=== PATIENT | male | born 1945 | race Caucasian/White ===

== ENCOUNTER 2021-08-12 09:43 | Observation (INO) ==
[2021-08-12] MEDS ORDERED: HEPARIN (PORCINE) 1000 UNIT/ML 10 ML (CATH LAB USE ONLY) ONE ×2 (11:56→14:52)
[2021-08-12] MEDS ORDERED: NITROGLYCERIN/D5W 100MCG/ML 20ML SYR ONE (11:57)
[2021-08-12] MEDS ORDERED: fentaNYL citrate 100 MCG/2 ML VIAL ONE ×2 (11:57→14:16)
[2021-08-12] MEDS ORDERED: niCARdipine HCL INJ 2.5 MG/ML 10 ML AMP ONE (11:57)
[2021-08-12] MEDS ORDERED: MIDAZOLAM HCL 5 MG/ML 1 ML VIAL ONE ×2 (11:59→14:28)
--- NOTE | 2021-08-12 13:39 | History & Physical Bridge Note ---
Date of Service August 12, 2021 History & Physical Bridge Note I have examined the patient, reviewed the History & Physical and in the interval since the performance of the History & Physical I have noted the following changes of clinical significance: no changes noted
--- NOTE | 2021-08-12 13:39 | Pre Anesthesia Assessment ---
Date of Service August 12, 2021 Pre Sedation Assessment Vital Signs Temp Pulse Resp BP Pulse Ox 08/12/21 09:55 98.2 F 60 20 143/87 H 97 Cardiovascular RRR, no murmur, no edema Respiratory normal respiratory effort, lungs clear to auscultation Pre-Sedation Airway Assessment Smoking Status: Never smoker Hx Sleep Apnea: Yes Hx Difficult Intubation: No Short, Thick Neck: No Thyromental Distance: > or= 3.5 Finger Breadths Oral Cavity: + WNL Mallampati Class: II ASA: ASA3 NPO Status Date of Last Intake of Fluids: 08/11/21 Date of Last Intake of Solid Food: 08/11/21 Procedure Planning Contraindications for Sedation: none Current Medications Reviewed: Yes Notes The planned sedation has been discussed with the patient. Informed Consent was obtained. I have identified the patient, determined the appropriateness of sedation and have assessed the patient immediately prior to the procedure. All medicine(s) and interventions are by my order.
[2021-08-12] MEDS ORDERED: diphenhydrAMINE 50 MG/ML VIAL ONE (15:04)
[2021-08-12] MEDS ORDERED: LIDOCAINE 1%/EPINEPHRINE 1:100,000 50 ML VIAL ONE (15:37)
[2021-08-12] MEDS ORDERED: ONDANSETRON INJ 2 MG/ML 2 ML VIAL IV PRN (16:16)
--- NOTE | 2021-08-12 16:16 | Post Anesthesia Assessment ---
Date of Service August 12, 2021 Post Sedation Assessment Vital Signs Temp Pulse Resp BP Pulse Ox 08/12/21 15:55 63 20 145/70 H 94 08/12/21 09:55 98.2 F 60 20 143/87 H 97 Recovery Score Activity: Moves 4 extremities Respiration: Deep Breath/Cough Circulation: +/-20% PreAnes Value Consciousness: Fully Awake Oxygen Saturation: > 92% On Room Air Post Anesthesia Score: 10 Discharge Sedation Level of Care: Fast Track Phase II Post Sedation Plan On clinical assessment, the patient appears to have tolerated the sedation without complications. Patient is recovering as anticipated. Patient will continue to be monitored by nursing and may be discharged when sedation discharge criteria are met per below protocol. Upon Completions of procedure up to 15 minutes continue every 5 minute vital signs and the P.A.R. score; then discharge to a Phase I or Fast Track to Phase II per the following guidelines: * Discharge Patient to appropriate Phase II area if PAR is 8 or greater or retur n to pre- procedure baseline. The post - procedure orders will be as directed. * If PAR score is less than 8 or not return to pre-procedure baseline then patient will follow Phase I monitoring till PAR is reached for Phase II. The Phase I may be done in procedure room or may call to secure a Phase I area. * If naloxone or flumazenil are used for reversal, hold in Phase I for continued monitoring from when last reversal dose was given for a minimum of 60 minutes or longer pending the nurse and/or physician discretion of patient condition before discharge to Phase II. Please call the Sedation Physician to re-evaluate and complete post-note for discharge to Phase II area. Do NOT discharge from procedure sedation or Phase 1 until post- sedation evaluation note is complete by procedure /sedation MD Sedation Discharge Instructions to be given to the patient at discharge to home.
[2021-08-12] MEDS ORDERED: PHARMACY GLYCEMIC MGMT CONSULT PRN (16:26)
[2021-08-12] MEDS ORDERED: GLUCAGON FOR INJ 1 MG VIAL SQ PRN (16:26)
[2021-08-12] MEDS ORDERED: GLUCOSE 40% GEL 15 GM TUBE PO PRN (16:26)
[2021-08-12] MEDS ORDERED: GLUCOSE 10 TABS/TUBE PO PRN (16:26)
[2021-08-12] MEDS ORDERED: CARBOHYDRATES FOR HYPOGLYCEMIA PO PRN (16:26)
[2021-08-12] MEDS ORDERED: DEXTROSE 50% 50 ML SYRINGE IV PRN (16:26)
[2021-08-12] MEDS ORDERED: INSULIN ASPART PER UNIT SC SCH (16:30)
--- NOTE | 2021-08-12 16:58 | Pharmacy Report ---
Pharmacy Glycemic Short Note 2 - Date of Service August 12, 2021 - Glycemic Short OUTPATIENT ANTIDIABETIC REGIMEN: * Novolog 20 units SC BID * Semaglutide * Glimepiride * HbA1c 6.8% on 06/03/21 ASSESSMENT: * 76 yo M with T2DM admitted 08/12 for cardiac cath * Will initiate weight-based moderate stress Novolog * Lantus dependent on HS BSG PLAN FOR INPATIENT GLYCEMIC CONTROL: * Hold outpatient oral diabetes medications * Basal insulin * Lantus 0-20 units SQ x1, depending on HS BSG * Bolus insulin * NovoLog per scale ACHS or Q6hrs while NPO * Goal Range: 110-140 mg/dL * Correction Factor: 20 mg/dL/unit * Nutritional / Prandial insulin per carb ratio of 1 unit per 6 grams CHO consumed
[2021-08-12 17:02] LABS: Basophils # (auto) 0.03 K/uL (0-0.2); Basophils % (auto) 0.4 %; Eosinophils # (auto) 0.19 K/uL (0-0.5); Eosinophils % (auto) 2.5 %; Hematocrit (blood only) 34.4 % (42-52); Hemoglobin 11.7 g/dL (14.0-18.0); Immature Granulocytes # (auto) 0.01 K/uL (0.00-0.02); Immature Granulocytes % (auto) 0.1 %; Lymphocytes # (auto) 1.67 K/uL (1.2-3.4); Lymphocytes % (auto) 21.8 %; Mean Corpuscular Hemoglobin 27.6 pg (25-34); Mean Corpuscular Volume 81.1 fL (80-100); Mean Platelet Volume 9.5 fL (7.4-10.4); Monocytes # (auto) 0.65 K/uL (0.11-0.59); Monocytes % (auto) 8.5 %; Neutrophils # (auto) 5.12 K/uL (1.4-6.5); Neutrophils % (auto) 66.7 %; Platelet Count 281 K/uL (130-400); RDW Coefficient of Variation 15.2 % (11.5-14.5); RDW Standard Deviation 44.6 fL (36.4-46.3); Red Blood Count 4.24 M/uL (4.7-6.1); White Blood Count 7.67 K/uL (4.8-10.8)
--- NOTE | 2021-08-12 17:05 | Endovascular Procedure Note ---
[facility] Endovascular Procedure Rpt Pre & Post Diagnosis Peripheral arterial disease I identified the patient and participated in the time-out.: Yes Procedure Operation Date: 08/12/21 11:00 Actual Procedures s Ultrasound Vascular Access - Juan Pablo Quigley MD s SC Select Cath ALEP 3rd Order - Juan Pablo Quigley MD s Placement Art Occlusive Device - Juan Pablo Quigley MD p Angio Extremity Bilateral - Juan Pablo Quigley MD Surgeon Trever Quigley MD Ensemble Member Leila Carrasco Estimated Blood Loss 20 Findings See Below Abdominal aorta--no significant aneurysmal or stenotic disease Right lower extremity-- -Common iliac, external iliac, internal iliac widely patent -WIND UP WORKER, profunda widely patent -SFA calcified, diffuse mild to moderate disease up to 40% in distal segment -Popliteal mild diffuse disease -JAZZ 100% proximal occlusion, reconstitutes in the distal segment via collaterals, 80% stenosis prior to DPA TPT 60 to 70% stenosis prior to bifurcation -SQL DEVELOPER DBA 100% occluded proximally, partially reconstitutes distally before subtotal occlusion just below ankle. Few collaterals to heel - Peroneal widely patent to the ankle, gives off collaterals to JAZZ, SQL DEVELOPER DBA -DPA patent, partial filling of deep plantar artery. Left lower extremity-- -Common iliac, external iliac, internal iliac widely patent -WIND UP WORKER, profunda widely patent -SFA mild diffuse proximal disease, heavily calcified distal segment with 80% stenosis -Popliteal moderate diffuse disease -JAZZ 100% proximal occlusion. Distal segment fills via collaterals. -SQL DEVELOPER DBA 100% proximal occlusion - peroneal widely patent to the ankle Anesthesia Type RN Sedation Radiation Exposure (mGv) Radiation (mGy): 1,074 Contrast Contrast: 100 Complications none Disposition Disposition: PCU Description of Procedure Right WIND UP WORKER obtained under ultrasound guidance, short 5Fr sheath placed Abdominal aortogram and proximal left lower extremity angiogram performed with RIM catheter. Selective angiography with quick cross catheter placed in proximal SFA 6 Fr 60 cm destination sheath placed from right WIND UP WORKER to left mid SFA Using quick cross, Corsair support catheters and command, Confianza wires attempt made to cross SQL DEVELOPER DBA occlusion antegrade. Able to pass wire to mid segment but unable to cross the distal occlusion with wire ending up extravascular in paired posterior tibial vein. Wire, support catheter pulled back and attempt made to cross proximal JAZZ occlusion. Again only able to progress to mid segment of JAZZ and unable to cross mid/distal occlusion. Post procedure unchanged single-vessel runoff via peroneal, SQL DEVELOPER DBA/JAZZ remained occluded. Contrast used: 100 Moderate sedation: [id number] Access closure: StarClose Summary: 1. Left lower extremity --mild to moderate diffuse SFA disease, single-vessel runoff to the ankle via peroneal. JAZZ/SQL DEVELOPER DBA occluded proximally. 2. Right lower extremity --80% calcified distal SFA stenosis, single-vessel runoff to the ankle via peroneal. JAZZ/SQL DEVELOPER DBA occluded proximally. 3. Unsuccessful attempted intervention to left posterior tibial and anterior tibial artery occlusions. Recommendations: Plan for repeat attempt at Left SQL DEVELOPER DBA intervention using retrograde posterior tibial artery approach next week. I attest to the content of the Intraoperative Record and any orders documented therein. Any exceptions are noted below. Vascular Charges Angiography/Venography Procedure 1: Angiography/Venography charges: [id number] Initial 3rd order or selective abd, pelvic, or LE branch Procedure 2: Angiography/Venography charges: [id number] Aortography, abd + b/l iliofem LE, catheter, radiological S&I Additional Services Procedure 1: Additional Services Charges: 68127 Ultrasound guidance - vascular access Procedure 2: Additional Services Charges: 36754 Moderate sedation initial 15 min Procedure 3: Additional Services Charges: 82430 Moderate sedation, each additional 15 min
[2021-08-12 17:22] LABS: BUN Creatinine Ratio 21.8 (10-20); Calcium 9.4 mg/dl (8.5-10.1); Est GFR (Non-African American) 56.1 ml/min
[2021-08-12] MEDS: SODIUM CHLORIDE 0.9% 1000ML 1,000 ML IV SCH (17:32)
[2021-08-12] MEDS: INSULIN ASPART PER UNIT SC SCH ×2 (17:49→20:50)
[2021-08-12] MEDS: ACETAMINOPHEN 325 MG TAB PO PRN (18:33)
[2021-08-12] MEDS: hydrALAZINE TAB 50 MG TAB PO SCH (18:39)
[2021-08-12] MEDS: AMOXICILLIN 500 MG CAP PO SCH (20:43)
[2021-08-12] MEDS ORDERED: INSULIN GLARGINE SOLOSTAR 100 UNITS/ML 3 ML PEN SC SCH (21:00)
[2021-08-12] MEDS ORDERED: INSULIN ASPART PER UNIT SQ SCH (21:00)
[2021-08-12] MEDS ORDERED: SPIRONOLACTONE 25 MG TAB PO SCH (21:00)
[2021-08-13] MEDS: ACETAMINOPHEN 325 MG TAB PO PRN (03:14)
[2021-08-13] MEDS: SODIUM CHLORIDE 0.9% 1000ML 1,000 ML IV SCH (03:16)
[2021-08-13] MEDS: AMOXICILLIN 500 MG CAP PO SCH (07:59)
[2021-08-13] MEDS: INSULIN ASPART PER UNIT SC SCH (08:00)
[2021-08-13] MEDS: hydrALAZINE TAB 50 MG TAB PO SCH (08:03)
[2021-08-13] MEDS ORDERED: amLODIPine BESYLATE 5 MG TAB PO SCH (09:00)
[2021-08-13] MEDS ORDERED: FUROSEMIDE 80 MG TAB PO SCH (09:00)
[2021-08-13] MEDS ORDERED: ATORVASTATIN 40 MG TAB PO SCH (09:00)
[2021-08-13] MEDS ORDERED: FERROUS SULFATE 325 MG TAB PO SCH (09:00)
[2021-08-13] MEDS ORDERED: COLLAGENASE OINT 30 GM TUBE TOP SCH (09:00)
[2021-08-13] MEDS ORDERED: SPIRONOLACTONE 25 MG TAB PO SCH (09:00)
[2021-08-13] MEDS ORDERED: ASPIRIN 81 MG ECTAB PO SCH (09:00)
--- NOTE | 2021-08-13 11:02 | Pharmacy Report ---
Pharmacy Glycemic Short Note 2 - Date of Service August 13, 2021 - Glycemic Short BSG Results (Last 24 hours): 08/12/21 08/12/21 08/12/21 16:47 17:38 20:22 Glucose 85 POC Glucose 94 118 H 08/13/21 07:12 Glucose POC Glucose 71 OUTPATIENT ANTIDIABETIC REGIMEN: * Novolog 20 units SC BID * Semaglutide * Glimepiride * HbA1c 6.8% on 06/03/21 ASSESSMENT: 08/13: * Patient received total 15 units of insulin yesterday all of which was basal. * Fasting BSG = 71 mg/dl today. Plan to reduce basal dose. Background 08/12/21: * 76 yo M with T2DM admitted 08/12 for cardiac cath * Will initiate weight-based moderate stress Novolog * Lantus dependent on HS BSG PLAN FOR INPATIENT GLYCEMIC CONTROL: * Hold outpatient oral diabetes medications * Basal insulin * Lantus 10 units SQ HS * Bolus insulin * NovoLog per scale ACHS or Q6hrs while NPO * Goal Range: 110-140 mg/dL * Correction Factor: 20 mg/dL/unit * Nutritional / Prandial insulin per carb ratio of 1 unit per 6 grams CHO consumed
--- NOTE | 2021-08-13 20:21 | Discharge Summary ---
Date of Service August 13, 2021 Admission HPI Per Admitting Provider 76-year-old man with a history of atrial fibrillation post watchman now off anticoagulation, history of CVA, type 2 diabetes, hypertension who presented for bilateral lower extremity angiogram in the setting of nonhealing left heel ulcer. Discharge Data Procedures Performed Operation Date: 08/12/21 11:00 Actual Procedures s Ultrasound Vascular Access - MD gloria Subramanian SC Select Cath ALEP 3rd Order - MD gloria Subramanian Placement Art Occlusive Device - Juan Pablo Quigley MD p Angio Extremity Bilateral - Juan Pablo Quigley MD Hospital Course (1) Peripheral arterial disease: Patient underwent bilateral lower extremity angiogram via right common femoral artery approach. On the left was found to have patent inflow, SFA/popliteal arteries with occluded proximal JAZZ/THERMOSPRAY OPERATOR and single-vessel runoff via peroneal to the foot. On right lower extremity had a 80% distal SFA stenosis along with occluded proximal JAZZ/THERMOSPRAY OPERATOR arteries below the knee. Attempt was made at endovascular intervention to posterior tibial artery and anterior tibial artery on the left. Unable to cross distal occlusions and procedure aborted. Post procedure patient slow to recover following sedation. Admitted for observation and monitoring of access site. Overnight patient had no events. Remained in rate controlled atrial fibrillation on telemetry. On day of discharge no apparent access site complications, feeling at baseline. Discharged home on prior medications. Plan for repeat attempt at intervention to left THERMOSPRAY OPERATOR via retrograde approach next Sunday. Coding Level of Care Code 33590 OBS Care - Discharge Diagnoses Peripheral arterial disease I73.9
== END 2021-08-13 10:51 | disposition home or self-care (01) ==
LOC: 2S 09:43 → CC 09:43
PROC: CLB.AEB (2021-08-12 11:00)